=== PATIENT | male | born 1970 | race African-American/Black ===

== ENCOUNTER 2023-06-12 17:49 | Inpatient (IN) ==
[2023-06-12 20:25] LABS: ABS Basophils 0.1 10^3/uL (0.0-0.1); ABS Eosinophils 0.3 10^3/uL (0.0-0.5); ABS Lymphocytes 2.5 10^3/uL (1.0-4.8); ABS Monocytes 0.6 10^3/uL (0.0-1.1); ABS Neutrophils 9.7 10^3/uL (1.5-7.6); ABS Nucleated RBC 0.03 10^3/ul; Hematocrit 47.9 % (38-53); Hemoglobin 15.9 g/dL (13.2-16.3); Mean Corpuscular Hemoglobin 29.6 pg (27-33); Mean Corpuscular Hgb Conc 33.2 g/dL (31-36); Mean Corpuscular Volume 89.1 fL (80-97); Mean Platelet Volume 7.9 fL (7.5-11.2); Nucleated Red Blood Cells % 0.2 %/100WBC (0.0-0.8); Platelet Count 292 10^3/uL (150-450); Red Blood Count 5.37 10^6/uL (4.06-5.63); White Blood Count 13.3 10^3/uL (3.6-10.2)
[2023-06-12] MEDS ORDERED: Metformin ER 750 mg TAB (NF) PO ONE (20:39)
[2023-06-12 20:46] LABS: ALT 41 U/L (7-52); Albumin 4.8 g/dL (3.2-5.2); Albumin/Globulin Ratio 1.7 (1-3); Alkaline Phosphatase 77 U/L (35-149); Anion Gap 8 mmol/L (2-16); Blood Urea Nitrogen 15 mg/dL (6-24); CO2 Carbon Dioxide 31 mmol/L (22-32); Calcium 10.6 mg/dL (8.6-10.3); Chloride 100 mmol/L (101-111); Creatinine, Serum 1.04 mg/dL (0.67-1.17); Globulin 2.9 g/dL (2-4); Glucose 196 mg/dL (70-100); Sodium 139 mmol/L (135-145); Total Bilirubin 0.6 mg/dL (0.2-1.0); Total Protein 7.7 g/dL (6.4-8.9); eGFR CKD-EPI 85.9 (>60)
[2023-06-12 20:49] LABS: Acetaminophen < 15 mcg/mL; Alcohol, S < 13 mg/dL (<13); Salicylate < 2.50 mg/dL (<30)
[2023-06-12 21:05] LABS: TSH Ultra Thyroid Stim Horm 1.62 mcIU/mL (0.34-5.60)
[2023-06-12 21:14] LABS: Urine Appearance Clear; Urine Bacteria Absent (Absent); Urine Benzodiazepine Screen None Detected (None Detect); Urine Bilirubin Negative (Negative); Urine Blood Negative (Negative); Urine Cannabinoids Screen None Detected (None Detect); Urine Color Straw; Urine Glucose 2+(150 mg/dL) (Negative); Urine Ketones Negative (Negative); Urine Nitrite Negative (Negative); Urine Opiates Screen None Detected (None Detect); Urine Protein Negative (Negative); Urine Red Blood Cell Absent (Absent); Urine Specific Gravity 1.002 (1.002-1.030); Urine Urobilinogen Negative (Negative); Urine White Blood Cell Absent (Absent)
[2023-06-12] MEDS ORDERED: Al Hydrox/Mg Hydrox/Simet LIQ 30 ML UDC PO PRN (22:49)
[2023-06-12] MEDS ORDERED: Nicotine GUM 2MG FRUIT FLAVOR PO PRN (23:00)
[2023-06-13] MEDS: Vitamin THERAPEUTIC TAB PO SCH (07:44)
[2023-06-13] MEDS: Nicotine PATCH 14 MG/24 HR PATCH TRANSDERM SCH (07:45)
[2023-06-13] MEDS ORDERED: SEMAGLUTIDE SUBCUT SCH (09:00)
[2023-06-13] MEDS ORDERED: NF: Bictegravir/Emtricit/Tenofov 1 TABLET PO SCH (09:00)
[2023-06-13] MEDS ORDERED: NF: ICOSAPENT ETHYL 1 GM CAPSULE (NF) PO SCH (09:00)
[2023-06-13] MEDS: Aspirin EC 81 mg TAB.EC (enteric coated) PO SCH (11:50)
[2023-06-13] MEDS ORDERED: Polyethylene Glycol 3350 17 GM PACKET PO PRN (15:32)
[2023-06-13] MEDS: PTO: Bictegravir/Emtricit/Tenofov 1 TABLET PO SCH (18:47)
[2023-06-13] MEDS: PTO: ICOSAPENT ETHYL 1 GM CAPSULE (NF) PO SCH (21:00)
[2023-06-13] MEDS ORDERED: OZEMPIC SUBCUT SCH (21:00)
[2023-06-14 08:18] LABS: Albumin 4.7 g/dL (3.2-5.2); Albumin/Globulin Ratio 1.7 (1-3); Calcium 9.9 mg/dL (8.6-10.3); Creatinine, Serum 0.94 mg/dL (0.67-1.17); Globulin 2.8 g/dL (2-4); HDL Cholesterol 48.1 mg/dL; Potassium 4.2 mmol/L (3.5-5.0); Total Bilirubin 0.5 mg/dL (0.2-1.0); Total Protein 7.5 g/dL (6.4-8.9); eGFR CKD-EPI 96.9 (>60)
[2023-06-14] MEDS: Vitamin THERAPEUTIC TAB PO SCH (09:54)
[2023-06-14] MEDS: PTO: ICOSAPENT ETHYL 1 GM CAPSULE (NF) PO SCH ×2 (09:55→20:57)
[2023-06-14] MEDS: Nicotine PATCH 14 MG/24 HR PATCH TRANSDERM SCH (09:56)
[2023-06-14] MEDS: Aspirin EC 81 mg TAB.EC (enteric coated) PO SCH (09:56)
[2023-06-14] MEDS: PTO: Bictegravir/Emtricit/Tenofov 1 TABLET PO SCH (09:56)
[2023-06-15] MEDS: Nicotine PATCH 14 MG/24 HR PATCH TRANSDERM SCH (09:15)
[2023-06-15] MEDS: Vitamin THERAPEUTIC TAB PO SCH (09:15)
[2023-06-15] MEDS: Aspirin EC 81 mg TAB.EC (enteric coated) PO SCH (09:16)
[2023-06-15] MEDS: PTO: Bictegravir/Emtricit/Tenofov 1 TABLET PO SCH (09:16)
[2023-06-15] MEDS: PTO: ICOSAPENT ETHYL 1 GM CAPSULE (NF) PO SCH ×2 (09:17→21:15)
[2023-06-16] MEDS: Aspirin EC 81 mg TAB.EC (enteric coated) PO SCH (09:05)
[2023-06-16] MEDS: Vitamin THERAPEUTIC TAB PO SCH (09:05)
[2023-06-16] MEDS: PTO: Bictegravir/Emtricit/Tenofov 1 TABLET PO SCH (09:06)
[2023-06-16] MEDS: Nicotine PATCH 14 MG/24 HR PATCH TRANSDERM SCH (09:09)
[2023-06-16] MEDS: PTO: ICOSAPENT ETHYL 1 GM CAPSULE (NF) PO SCH ×2 (09:42→21:46)
[2023-06-17] MEDS: Vitamin THERAPEUTIC TAB PO SCH (09:42)
[2023-06-17] MEDS: PTO: ICOSAPENT ETHYL 1 GM CAPSULE (NF) PO SCH ×2 (09:42→20:31)
[2023-06-17] MEDS: PTO: Bictegravir/Emtricit/Tenofov 1 TABLET PO SCH (09:42)
[2023-06-17] MEDS: Nicotine PATCH 14 MG/24 HR PATCH TRANSDERM SCH (09:42)
[2023-06-17] MEDS: Aspirin EC 81 mg TAB.EC (enteric coated) PO SCH (09:43)
[2023-06-18] MEDS: Aspirin EC 81 mg TAB.EC (enteric coated) PO SCH (09:12)
[2023-06-18] MEDS: Vitamin THERAPEUTIC TAB PO SCH (09:12)
[2023-06-18] MEDS: PTO: Bictegravir/Emtricit/Tenofov 1 TABLET PO SCH (09:13)
[2023-06-18] MEDS: PTO: ICOSAPENT ETHYL 1 GM CAPSULE (NF) PO SCH ×2 (09:13→22:02)
[2023-06-18] MEDS: Nicotine PATCH 14 MG/24 HR PATCH TRANSDERM SCH (09:17)
[2023-06-18] MEDS: Clotrimazole 1% CREAM 30 gm TOPICAL SCH (18:51)
[2023-06-19] MEDS: Aspirin EC 81 mg TAB.EC (enteric coated) PO SCH (08:11)
[2023-06-19] MEDS: PTO: ICOSAPENT ETHYL 1 GM CAPSULE (NF) PO SCH ×2 (08:12→20:55)
[2023-06-19] MEDS: Nicotine PATCH 14 MG/24 HR PATCH TRANSDERM SCH (08:12)
[2023-06-19] MEDS: PTO: Bictegravir/Emtricit/Tenofov 1 TABLET PO SCH (08:12)
[2023-06-19] MEDS: Vitamin THERAPEUTIC TAB PO SCH (08:33)
[2023-06-19] MEDS: Clotrimazole 1% CREAM 30 gm TOPICAL SCH ×2 (08:35→20:54)
[2023-06-20] MEDS: PTO: ICOSAPENT ETHYL 1 GM CAPSULE (NF) PO SCH (08:41)
[2023-06-20] MEDS: PTO: Bictegravir/Emtricit/Tenofov 1 TABLET PO SCH (08:42)
[2023-06-20] MEDS: Vitamin THERAPEUTIC TAB PO SCH (08:43)
[2023-06-20] MEDS: Aspirin EC 81 mg TAB.EC (enteric coated) PO SCH (08:45)
[2023-06-20] MEDS: Clotrimazole 1% CREAM 30 gm TOPICAL SCH (08:46)
[2023-06-20] MEDS: Nicotine PATCH 14 MG/24 HR PATCH TRANSDERM SCH (08:49)
[2023-06-20 09:08] VITALS: BP 116/76
== END 2023-06-20 11:00 | disposition home or self-care (01) | DRG 885 ==
LOC: ED 17:49 → BSU 22:48
PROVIDERS: ADMIT Psychiatry & Neurology Psychiatry; ATTEND Psychiatry & Neurology Psychiatry

== ENCOUNTER 2024-06-15 19:55 | Inpatient (IN) ==
[2024-06-15 21:11] LABS: ABS Basophils 0.1 10^3/uL (0.0-0.1); ABS Eosinophils 0.2 10^3/uL (0.0-0.5); ABS Lymphocytes 2.2 10^3/uL (1.0-4.8); ABS Monocytes 0.6 10^3/uL (0.0-1.1); ABS Neutrophils 5.7 10^3/uL (1.5-7.6); ABS Nucleated RBC 0.01 10^3/ul; Eosinophil % 2.3 %; Hemoglobin 14.5 g/dL (13.2-16.3); Lymphocyte % 25.3 %; Mean Corpuscular Hemoglobin 30.5 pg (27-33); Mean Corpuscular Hgb Conc 33.8 g/dL (31-36); Mean Corpuscular Volume 90.2 fL (80-97); Mean Platelet Volume 7.6 fL (7.5-11.2); Nucleated Red Blood Cells % 0.1 %/100WBC (0.0-0.8); Platelet Count 258 10^3/uL (150-450); Red Blood Count 4.77 10^6/uL (4.06-5.63); Red Cell Distribution Width 13.7 % (12-17); White Blood Count 8.7 10^3/uL (3.6-10.2)
[2024-06-15 21:36] LABS: ALT 29 U/L (7-52); AST 22 U/L (13-39); Acetaminophen < 15 mcg/mL; Albumin 4.8 g/dL (3.5-5.7); Alcohol, S < 13 mg/dL (<13); Alkaline Phosphatase 70 U/L (35-149); Anion Gap 6 mmol/L (2-16); Blood Urea Nitrogen 8 mg/dL (6-24); CO2 Carbon Dioxide 28 mmol/L (22-32); Calcium 9.9 mg/dL (8.6-10.3); Chloride 102 mmol/L (101-111); Creatinine, Serum 1.25 mg/dL (0.67-1.17); Globulin 2.4 g/dL (2-4); Glucose 97 mg/dL (70-100); Salicylate < 2.50 mg/dL (<30); Sodium 136 mmol/L (135-145); Total Bilirubin 0.5 mg/dL (0.2-1.0); Total Protein 7.2 g/dL (6.4-8.9); eGFR CKD-EPI 68.4 (>60)
[2024-06-15 21:51] LABS: TSH Ultra Thyroid Stim Horm 0.88 mcIU/mL (0.34-5.60)
[2024-06-15 23:01] LABS: Urine Appearance Clear; Urine Bilirubin Negative (Negative); Urine Blood Negative (Negative); Urine Color Colorless; Urine Glucose Negative (Negative); Urine Ketones Negative (Negative); Urine Nitrite Negative (Negative); Urine Protein Negative (Negative); Urine Specific Gravity 1.009 (1.002-1.030); Urine Urobilinogen Negative (Negative); Urine pH 5.5 (5.0-8.0)
[2024-06-15 23:19] LABS: Urine Benzodiazepine Screen None Detected (None Detect); Urine Cannabinoids Screen None Detected (None Detect); Urine Opiates Screen None Detected (None Detect)
[2024-06-16] MEDS ORDERED: Al Hydrox/Mg Hydrox/Simet LIQ 30 ML UDC PO PRN (08:12)
[2024-06-17 08:55] LABS: HDL Cholesterol 29.7 mg/dL
[2024-06-17 11:24] VITALS: BP 129/79
[2024-06-18] MEDS ORDERED: INJECTOR SUBCUT SCH (09:00)
[2024-06-18] MEDS ORDERED: SEMAGLUTIDE SUBCUT SCH (09:00)
== END 2024-06-17 13:45 | disposition home or self-care (01) | DRG 885 ==
LOC: ED 19:55 → EDHOLD 06-16 08:12 → BSU 06-16 08:20
PROVIDERS: ADMIT Student in an Organized Health Care Education/Training Program; ATTEND Psychiatry & Neurology Psychiatry